=== PATIENT | male | born 1950 | race Caucasian/White ===

== ENCOUNTER 2022-06-06 19:47 | Emergency (ER) | payer MEDICARE ==
[~2022-06-06 19:47] MED LIST: BENA20TA78 PO
--- NOTE | 2022-06-06 21:17 | NUR ---
CALLED TO TRIAGE. PT DOES NOT WANT TO TRIAGE NOT SEN BY THE MD. PER PT "I WILL JUST SEE MY PRIMARY MD"
== END 2022-06-06 21:19 | disposition left against medical advice (07) ==
LOC: ER 19:50
DX: Z53.21 Procedure and treatment not carried out due to patient leaving prior to being seen by health care provider (principal)